=== PATIENT | male | born 2000 | race Caucasian/White ===

== ENCOUNTER 2020-09-18 08:04 | Outpatient (REF) | payer OTHER, MEDICAID, SELFPAY ==
[2020-09-18 12:32] LABS: Alanine Aminotransferase 33 U/L (0-40); Albumin Level 4.4 g/dL (3.5-5.0); Alkaline Phosphatase 52 U/L (39-117); Anion Gap 14 (12-20); Aspartate Amino Transferase 20 U/L (5-37); Bilirubin Total 0.5 mg/dL (0.0-1.0); Blood Urea Nitrogen 16 mg/dL (9-16); Calcium 9.7 mg/dL (8.4-10.2); Carbon Dioxide 27 mmol/L (22-29); Chloride 103 mmol/L (96-108); Cholesterol 143 mg/dL; Estimated Glomerular Filt Rate > 60; Glucose Fasting 99 mg/dL (60-99); HDL Cholesterol 48 mg/dL; LDL Cholesterol Calculated 85 mg/dl; Potassium 4.9 mmol/l (3.3-5.1); Sodium 139 mmol/L (135-145); Total Protein 7.1 g/dL (6.5-8.0); Triglycerides 54 mg/dL
[2020-09-18 12:54] LABS: TSH reflex Free T4 0.81 mIU/mL (0.32-4.0)
== END 2020-09-18 08:05 | disposition home or self-care (01) ==
LOC: HO.WFDLDS 08:04
PROVIDERS: PCP Family Medicine; Visit Provider Family Medicine
DX: Z00.00 Encounter for general adult medical examination without abnormal findings (principal)
CPT/HCPCS: 80053; 80061; 84443

== ENCOUNTER 2020-09-29 | Outpatient (REF) | payer OTHER, SELFPAY | END 2020-09-29 00:01 | disposition home or self-care (01) | LOC: HO.WFDLNP | PROVIDERS: Visit Provider Family Medicine | DX: Z20.828 Contact with and (suspected) exposure to other viral communicable diseases (principal) | CPT/HCPCS: U0003 ==

== ENCOUNTER 2020-11-02 10:05 | Outpatient (REF) | payer OTHER, MEDICAID, SELFPAY ==
[2020-11-02 11:07] LABS: Creatinine Urine 47.83 mg/dL; Microalbumin Urine < 5.0 mg/L
== END 2020-11-02 10:06 | disposition home or self-care (01) ==
LOC: HO.WFDLNP 10:05
PROVIDERS: Visit Provider Family Medicine
DX: I10 Essential (primary) hypertension (principal)
CPT/HCPCS: 82043

== ENCOUNTER 2020-11-28 19:30 | Emergency (ER) | payer OTHER, MEDICAID, SELFPAY ==
[2020-11-28 19:32] VITALS: BP 150/77; PULSE 91; RESP 18; TEMP 36.7; O2SAT 96; BMI 35.1
--- NOTE | 2020-11-28 20:46 | ED.WOUNDLAC ---
HPI - Wound/Laceration General Chief Complaint: Wound/Laceration Stated Complaint: Finger lac Time Seen by Provider: 11/28/20 20:46 History of Present Illness HPI narrative: Patient complains of laceration to left 3rd finger and a hour ago at home he cut it on the edge of a sharp thing, no numbness no weakness no tingling no other injuries Related Data Previous Rx's Medication Instructions Recorded sertraline 50 mg tablet 75 mg PO DAILY 30 Days #45 tab 10/22/20 trazodone 100 mg tablet 100 mg PO BEDTIME PRN 30 Days #30 11/02/20 tab hydroxyzine HCl 50 mg tablet 50 mg PO BID PRN 30 Days #60 tab 11/16/20 metoprolol succinate 25 mg 25 mg PO DAILY 30 Days #30 tab 11/16/20 tablet,extended release 24 hr fluoxetine 40 mg capsule 40 mg PO DAILY #30 cap 11/17/20 Allergies Allergy/AdvReac Type Severity Reaction Status Date / Time No Known Allergies Allergy Verified 11/28/20 19:32 [No Known Allergies*] Review of Systems Review of Systems: Laceration to left 3rd finger is the positive Negatives are no dizziness no weakness no numbness no weakness no tingling no redness no warmth no foreign body sensation Yes all other systems are reviewed and are negative PMFSH Past Medical History PMFSH Narrative: Patient has history of hypertension with prescription for Lopressor that he has not been taking because he says he forgets Source: nursing notes reviewed Medical History (Updated 11/29/20 @ 00:00 by Background Dabonita) Depression HTN (hypertension) Social History Social History Alcohol intake: never Smoked in Last 30 Days: No Use of substances other than those prescribed or required for medical reasons: No Advance Directives: No Advance Directives Information Provided: Yes Physical Exam Vital Signs: Vital Signs: Last Vital Signs Temp 98.0 F 11/28/20 19:32 Pulse 91 11/28/20 19:32 Resp 18 11/28/20 19:32 BP 150/77 H 11/28/20 19:32 Pulse Ox 96 11/28/20 19:32 Body Mass Index 35.1 General appearance is no acute distress comfortable relaxed cooperative Head is normocephalic atraumatic Neck is supple Respiratory no acute distress Extremities the left 3rd finger has a superficial 0.5 cm laceration on the palmar surface of the distal phalanx, all tendon function is normal sensation and motor are intact Neuro no focal deficit Course Course Course Narrative: Small laceration on left 3rd finger is cleansed and irrigated with normal saline, Dermabond is applied and a dressing is applied Patient who is noncompliant with his blood pressure meds is advised of risk over years of uncontrolled hypertension and advised to warm use his medication and perhaps lose some weight and exercise Discharge Plan Discharge Clinical Impression: Laceration, Hypertension Patient Disposition: Home, Self-Care Additional Instructions: Laceration was closed with glue which will peel off on its own in a few days, cover with a Band-Aid Your blood pressure was elevated and you told me you are not taking your medication because forgot it, be aware that many serious problems can happen to people who do not get their blood pressure controlled and even though you are young in 15 or 20 years if blood pressure is not controlled you can have many problems such as heart attack stroke impotence Follow-up closely with primary doctor, weight loss and exercise and diet may help control blood pressure but until it is controlled with those measures it is a good idea to take the medication Prescriptions: No Action hydroxyzine HCl 50 mg tablet 50 mg PO BID PRN (Reason: itching) 30 Days Qty: 60 RF: 0 metoprolol succinate 25 mg tablet extended release 24 hr 25 mg PO DAILY 30 Days Qty: 30 RF: 1 fluoxetine 40 mg capsule 40 mg PO DAILY Qty: 30 RF: 1 trazodone 100 mg tablet 100 mg PO BEDTIME PRN (Reason: Anxiety/sleep) 30 Days Qty: 30 RF: 1 sertraline 50 mg tablet 75 mg PO DAILY 30 Days Qty: 45 RF: 1 Interventions: ED Discharge Assessment Last Done: 11/28/20 21:04 Discharge Date/Time: 11/28/20 21:08
--- NOTE | 2020-11-28 21:06 | PC.NURSE ---
PT LAC CLEANED AND DERMABONDED BY WILLIAM STONE. BAND AID APPLIED.
== END 2020-11-28 21:08 | disposition home or self-care (01) ==
PROVIDERS: Emergency Provider Emergency Medicine; PCP Family Medicine
DX: S61.213A Laceration without foreign body of left middle finger without damage to nail, initial encounter (principal); W26.9XXA Contact with unspecified sharp object(s), initial encounter; I10 Essential (primary) hypertension; Z91.14 Patient's other noncompliance with medication regimen; Y93.9 Activity, unspecified; Y92.019 Unspecified place in single-family (private) house as the place of occurrence of the external cause; Y99.9 Unspecified external cause status
CPT/HCPCS: 12001; 99284

== ENCOUNTER 2022-10-07 08:18 | Outpatient (REF) | payer OTHER, SELFPAY ==
[2022-10-07 09:58] LABS: Alanine Aminotransferase 110 U/L (0-40); Albumin Level 4.4 g/dL (3.5-5.0); Alkaline Phosphatase 65 U/L (39-117); Anion Gap 16 (12-20); Aspartate Amino Transferase 32 U/L (5-37); Bilirubin Total 0.4 mg/dL (0.0-1.0); Blood Urea Nitrogen 13 mg/dL (9-16); Calcium 9.7 mg/dL (8.4-10.2); Carbon Dioxide 24 mmol/L (22-29); Chloride 105 mmol/L (96-108); Estimated Glomerular Filt Rate > 60; Glucose Random 108 mg/dL (60-115); Potassium 4.6 mmol/L (3.3-5.1); Sodium 140 mmol/L (135-145); Total Protein 7.4 g/dL (6.5-8.0)
[2022-10-08 17:48] LABS: Follicle Stimulating Hormone 3.7 mIU/mL (1.6-8.0); Lutenizing Hormone 4.5 mIU/mL (1.5-9.3)
[2022-10-19 17:08] LABS: Testosterone, Free 45.1 pg/mL (35.0-155.0); Testosterone, Total 327 ng/dL (250-1100)
== END 2022-10-07 08:19 | disposition home or self-care (01) ==
LOC: HO.LAB 08:18
PROVIDERS: PCP Family Medicine; Visit Provider Internal Medicine Endocrinology, Diabetes & Metabolism
DX: R79.89 Other specified abnormal findings of blood chemistry (principal); R74.01 Elevation of levels of liver transaminase levels
CPT/HCPCS: 36415; 80053; 83001; 83002; 84402; 84403

== ENCOUNTER 2022-11-24 08:24 | Outpatient (REF) | payer OTHER, SELFPAY ==
--- NOTE | ~2022-11-24 | US_ITS ---
EXAMINATION: US ABDOMEN LIMITED WITH LIVER ELASTOGRAPHY CLINICAL INFORMATION: Elevated liver function tests COMPARISON: None. TECHNIQUE: Real-time imaging of the abdominal viscera. Noninvasive ultrasound liver fibrosis assessment is performed using David Elast[employer] point quantification shear wave elastography (2D-SWE) with a C5-2 MHz transducer. Multiple elastography samples are obtained. FINDINGS: PANCREAS: The visualized pancreatic head and body are normal in appearance. The remainder of the pancreas is obscured from visualization by the overlying bowel gas. LIVER: Liver echotexture is increased. The liver is normal in size and contour. No focal lesion or intrahepatic biliary duct dilatation. The right lobe measures 15 cm in length. The left lobe measures 9 cm in length. Portal flow is normal/hepatopedal Shear wave liver elastography median stiffness is 1.4 m/s (reference: normal median stiffness is 1.3 m/s or less). IQR/median stiffness to assess sampling precision is 0.19 (reference: good quality data set is IQR/median stiffness of 0.15 or less). GALLBLADDER: There is a wall echo shadow complex suggestive of a gallbladder filled with gallstones. COMMON BILE DUCT: Normal in caliber measuring 0.3 cm in diameter. RIGHT KIDNEY: Normal. No hydronephrosis. No renal calculi or focal parenchymal lesions. The kidney measures 11 cm in maximum dimension. FREE FLUID: None. US/US abdomen montes w elastography IMPRESSION: 1. Impression: Slightly echogenic liver. Gallstones. Limited visualization of the tail the pancreas. 2. Liver elastography: Slightly limited due to sampling error and decreased confidence thresholds. In the absence of other known clinical signs, rules out compensated advanced chronic liver disease. REFERENCE: Society of [employer] in Ultrasound Liver Stiffness Thresholds (2020): LIVER STIFFNESS THRESHOLDS: *Liver Stiffness equal or less than 1.3 m/s: High probability of being normal. *Liver Stiffness less than 1.7 m/s: In the absence of other known clinical signs, rules out compensated advanced chronic liver disease. *Liver Stiffness 1.7-2.1 m/s: Suggestive of compensated advanced chronic liver disease but need further test for confirmation. *Liver Stiffness over 2.1 m/s: Rules in compensated advanced chronic liver disease. *Liver Stiffness over 2.4 m/s: Suggestive of clinically significant portal hypertension. QUALITY OF DATA SET: *IQR/Median value equal or less than 0.15 implies a quality data set. *IQR/Median value over 0.15 implies a poor quality data set. SIGNIFICANT CHANGE FROM PRIOR EXAM: Significant change if liver stiffness measurement is 10% or greater from prior exam. OTHER CONSIDERATIONS: The stage of liver fibrosis may be overestimated in the setting of acute hepatitis, liver inflammation, elevated liver function tests, hepatic vascular congestion, obstructive cholestasis, non-fasting state, and infiltrative diseases such as amyloidosis and lymphoma. In some patients with NAFLD, the liver stiffness thresholds for compensated advanced chronic liver disease may be lower. In causes other than viral hepatitis and NAFLD, liver stiffness thresholds are not well established.
== END 2022-11-24 08:25 | disposition home or self-care (01) ==
LOC: HO.US 08:24
PROVIDERS: PCP Family Medicine; Visit Provider Family Medicine
DX: R74.01 Elevation of levels of liver transaminase levels (principal)
CPT/HCPCS: 76705; 76981